=== PATIENT | female | born 1990 | race Caucasian/White ===

== ENCOUNTER 2022-09-30 13:52 | Outpatient (CLI) | payer OTHER, SELFPAY ==
--- NOTE | 2022-09-30 14:00 | CRLHL7_ITS ---
For Patients: As a result of the Cures Act, medical imaging exams and procedure reports are released immediately into your electronic medical record. You may view this report before your referring provider. If you have questions, please contact your health care provider. INDICATION: Dating and viability. LMP 07/22/2022. COMPARISON: None. TECHNIQUE: Real-time blackwell-scale imaging of the pelvis was performed. FINDINGS: Sonographic imaging demonstrates a single living intrauterine gestation. The embryo has a regular cardiac rate measuring 171 beats per minute. The embryo`s crown-rump length measurement of 3.1 cm corresponds to a gestational age of 10 weeks 0 days with a sonographic due date of 04/28/2023. There is a normal-appearing yolk sac. There is a developing placenta. There is a 2.8 x 1.2 x 4.3 cm subchorionic hemorrhage in the upper uterus. The right ovary measures 3.5 x 1.5 x 2.3 cm and the left ovary measures 2.2 x 1.3 x 1.9 cm. Corpus luteum in the right ovary. No free fluid in the cul-de-sac. IMPRESSION: 1. Single living intrauterine gestation with crown rump length 3.1 cm which corresponds to a gestational age of 10 weeks 0 days with a sonographic due date of 04/28/2023. 2. The clinical gestational age by LMP is 10 weeks 0 days. 3. Moderate subchorionic hemorrhage. Dictated by Karis Beckman MD @ 09/30/2022 6:52:18 PM (Electronically Signed)
== END 2022-09-30 13:53 | disposition home or self-care (01) ==
LOC: US 13:55
PROVIDERS: Visit Provider Physician Assistant
DX: Z34.91 Encounter for supervision of normal pregnancy, unspecified, first trimester (principal); O20.9 Hemorrhage in early pregnancy, unspecified; Z3A.10 10 weeks gestation of pregnancy
CPT/HCPCS: 76801; 82565; 82570; 84156; 84450; 84460; 84520; 84550; 86592; 86703; 86762; 86787; 86803; 86850; 86900; 86901; 87086; 87340; 87491; 87591

== ENCOUNTER 2022-10-06 10:58 | Outpatient (CLI) | payer OTHER, SELFPAY | END 2022-10-06 10:59 | disposition home or self-care (01) | LOC: NFLDREF 10-07 19:53 | PROVIDERS: Visit Provider Physician Assistant | DX: Z34.90 Encounter for supervision of normal pregnancy, unspecified, unspecified trimester (principal); Z86.32 Personal history of gestational diabetes | CPT/HCPCS: 82570; 84156 ==

== ENCOUNTER 2022-11-07 09:03 | Outpatient (CLI) | payer OTHER, SELFPAY | END 2022-11-07 09:04 | disposition home or self-care (01) | PROVIDERS: Visit Provider Physician Assistant | DX: Z34.92 Encounter for supervision of normal pregnancy, unspecified, second trimester (principal); Z3A.15 15 weeks gestation of pregnancy | CPT/HCPCS: 84450; 84460 ==

== ENCOUNTER 2022-12-15 09:05 | Outpatient (CLI) | payer OTHER, SELFPAY ==
--- NOTE | 2022-12-15 | CRLHL7_ITS ---
Patient: RADHA SOUSA Facility:?[facility] Patient ID:?[id number] Site Patient ID:?[id number]. Site :?[id number] Study:?US-OB Pelvis anatomy-12/15/2022 10:49:15 AM Ordering Physician:Khang June Final Report: ADDENDUM: BPD: 4.4 cm, 19 weeks 1 day, 3rd percentile. HC: 17.2 cm, 19 weeks 5 days, 6th percentile. AC: 15.1 cm, 20 weeks 2 days, 27th percentile. FL: 3.2 cm, 20 weeks 0 days, 15th percentile. Estimated weight 13th percentile. Sonographic gestational age 19 weeks 5 days and sonographic due date 05/06/2023. Sonographic age eight days behind the clinical age. Revised measurements due to adjustment in the clinical dates. Javed Simmons M.D. Diagnostic Radiologist [employer] [email or web address] [email or web address] D& Transcribed: 1:37 p.m. INDICATION: Evaluate anatomy. COMPARISON: 09/30/2022 TECHNIQUE: Real time blackwell scale imaging of the fetus was performed as well as color Doppler analysis of the umbilical vessels. FINDINGS: Sonographic imaging demonstrates a single living intrauterine gestation. Fetus demonstrates a regular cardiac rate of 148 beats per minute. Fetus has a vertex position. The placenta lies posteriorly. The edge of the placenta is located 2.0 cm from the internal cervical os. Circumvallate placenta noted. Amniotic fluid volume appears normal. Single deepest vertical pocket: 4.8 cm. The cervix is closed and measures 3.7 cm in length. The composite ultrasound gestational age is calculated at 19 weeks 5 days with an estimated sonographic due date of 05/06/2023. The estimated weight is 332 grams which lies at the 4th %. The following biometric measurements were obtained: Biparietal diameter: 4.4 cm/19 weeks 1 day less than 3rd% Head circumference: 17.2 cm/19 weeks 5 days less than 3rd% Abdominal circumference: 15.1 cm/20 weeks 2 days 13th% Femur length: 3.2 cm/20 weeks 0 days 6th% The HC/AC ratio measures: 1.14 range (1.08-1.26) On anatomic survey, there is a normal appearance of the cerebral ventricles, cavum septi pellucidi, cisterna magna and cerebellum. The nose, lips, and facial profile appear normal. The cervical, thoracic and lumbar spine are well visualized and appear normal. There is a normal four-chamber heart view and the left and right ventricular outflow tracts appear normal. The diaphragm and stomach appear normal. The kidneys and bladder also appear normal. There is a normal three-vessel cord and cord insertion site. The four extremities appear normal. IMPRESSION: Sonographic gestational age 19 weeks 5 days and sonographic due date 05/06/2023. Sonographic age 12 days behind the clinical age. Estimated weight 4th percentile. Abdominal circumference 13th percentile. BPD and HC less than 3rd percentile. Umbilical artery S/D ratio 2.6. Dictated by Javed Simmons MD @ 12/15/2022 11:06:20 AM Signed by: Javed Simmons @ 12/15/2022 11:06:20 AM (Electronic Signature) Signed by:?Javed Simmons MD @12/15/2022 3:48:18 PM (Electronic Signature)
== END 2022-12-15 09:06 | disposition home or self-care (01) ==
PROVIDERS: Visit Provider Physician Assistant
DX: O36.5920 Maternal care for other known or suspected poor fetal growth, second trimester, not applicable or unspecified (principal); Z3A.19 19 weeks gestation of pregnancy
CPT/HCPCS: 76805; 76820

== ENCOUNTER 2023-02-06 07:52 | Outpatient (CLI) | payer OTHER, SELFPAY | END 2023-02-06 07:53 | disposition home or self-care (01) | PROVIDERS: Visit Provider Obstetrics & Gynecology | DX: O26.899 Other specified pregnancy related conditions, unspecified trimester (principal); Z67.91 Unspecified blood type, Rh negative | CPT/HCPCS: 86592; 86850; J2791 ==

== ENCOUNTER 2023-02-06 08:13 | Outpatient (CLI) | payer OTHER, SELFPAY ==
--- NOTE | 2023-02-06 08:15 | CRLHL7_ITS ---
For Patients: As a result of the Century Cures Act, medical imaging exams and procedure reports are released immediately into your electronic medical record. You may view this report before your referring provider. If you have questions, please contact your health care provider. INDICATION: female. Follow up growth. Small for dates. Evaluate well-being. TECHNIQUE: Transabdominal obstetrical ultrasound. Grayscale and color spectral Doppler waveform analysis of the umbilical artery was performed. FINDINGS: Single living intrauterine in vertex presentation. Posterior placenta. heart rate 138 beats per minute. Normal amniotic fluid. Single deepest pocket measurement 5.1 cm. Biophysical profile score 8/8 with 2 points given each for breathing, movement, tone, and amniotic fluid. Biparietal diameter 6.6 cm, 26 weeks 5 days, 4th percentile. Head circumference twin 25.2 cm, 27 weeks 2 days, 3rd percentile. Abdominal circumference 22.8 cm, 27 weeks 1 day, 11th percentile. Femur length 5.1 cm, 27 weeks 2 days, 9th percentile. Composite calculated ultrasound age 27 weeks 1 day with a sonographic due date of May 07, 2023. Estimated weight 1038 g which lies at the 7th percentile. Head to abdominal circumference ratio is normal at 1.1 (1.05-1.22). Umbilical artery systolic to diastolic ratio 3.3. Adequate diastolic flow. IMPRESSION: Single living intrauterine in vertex presentation with a composite calculated ultrasound age of 27 weeks 1 day with a sonographic due date of May 09, 2023. Estimated weight is at the 7th percentile. Biophysical profile score 8/8. Dictated by Hema Green MD @ 02/06/2023 9:46:41 AM (Electronically Signed)
== END 2023-02-06 08:14 | disposition home or self-care (01) ==
LOC: US 08:14
PROVIDERS: Visit Provider Physician Assistant
DX: O36.5920 Maternal care for other known or suspected poor fetal growth, second trimester, not applicable or unspecified (principal); Z3A.27 27 weeks gestation of pregnancy
CPT/HCPCS: 76816; 76819; 76820; 86850; J2791

== ENCOUNTER 2023-02-14 07:10 | Outpatient (CLI) | payer OTHER, SELFPAY ==
--- NOTE | 2023-02-14 07:15 | CRLHL7_ITS ---
For Patients: As a result of the Century Cures Act, medical imaging exams and procedure reports are released immediately into your electronic medical record. You may view this report before your referring provider. If you have questions, please contact your health care provider. INDICATION: Small for dates COMPARISON: 02/06/2023 TECHNIQUE: Real time blackwell scale imaging of the fetus was performed as well as color Doppler and spectral Doppler analysis of the umbilical artery. Without non-stress testing. FINDINGS: Sonographic imaging demonstrates a single living intrauterine gestation. Fetus demonstrates a regular cardiac rate of 149 beats per minute. Fetus has a vertex position. The umbilical artery demonstrates adequate diastolic blood flow. The S/D ratio measures 2.5. The amniotic fluid volume appears normal and there is a single deepest pocket measurement of 5.3 cm. The fetus was active and demonstrated normal breathing movements. There was normal flexion and extension of the trunk and extremities. IMPRESSION: Normal biophysical profile score of 8 out of 8. Dictated by Javed Simmons MD @ 02/16/2023 11:39:07 AM (Electronically Signed)
== END 2023-02-14 07:11 | disposition home or self-care (01) ==
LOC: US 07:11
PROVIDERS: Visit Provider Obstetrics & Gynecology
DX: O36.5990 Maternal care for other known or suspected poor fetal growth, unspecified trimester, not applicable or unspecified (principal)
CPT/HCPCS: 76819; 76820

== ENCOUNTER 2023-02-17 09:29 | Outpatient (CLI) | payer OTHER, SELFPAY ==
--- NOTE | 2023-02-17 09:45 | CRLHL7_ITS ---
For Patients: As a result of the Century Cures Act, medical imaging exams and procedure reports are released immediately into your electronic medical record. You may view this report before your referring provider. If you have questions, please contact your health care provider. INDICATION: NON-REACTIVE NST COMPARISON: 02/14/2023 TECHNIQUE: Real time blackwell scale imaging of the fetus was performed. Without non-stress testing. FINDINGS: Sonographic imaging demonstrates a single living intrauterine gestation. Fetus demonstrates a regular cardiac rate of 157 beats per minute. Fetus has a vertex position. The amniotic fluid volume appears normal and there is a single deepest pocket measurement of 6.9 cm. The fetus was active and demonstrated normal breathing movements. There was normal flexion and extension of the trunk and extremities. IMPRESSION: Normal biophysical profile score of 8 out of 8. Dictated by Javed Simmons MD @ 02/17/2023 11:10:58 AM (Electronically Signed)
== END 2023-02-17 09:30 | disposition home or self-care (01) ==
LOC: US 09:29
PROVIDERS: Visit Provider Obstetrics & Gynecology
DX: O36.5990 Maternal care for other known or suspected poor fetal growth, unspecified trimester, not applicable or unspecified (principal)
CPT/HCPCS: 76819

== ENCOUNTER 2023-02-21 08:10 | Outpatient (CLI) | payer OTHER, SELFPAY ==
--- NOTE | 2023-02-21 08:15 | CRLHL7_ITS ---
For Patients: As a result of the Century Cures Act, medical imaging exams and procedure reports are released immediately into your electronic medical record. You may view this report before your referring provider. If you have questions, please contact your health care provider. INDICATION: IUGR COMPARISON: 02/17/2023 TECHNIQUE: Real time blackwell scale imaging of the fetus was performed as well as color Doppler and spectral Doppler analysis of the umbilical artery. Without non-stress testing. FINDINGS: Sonographic imaging demonstrates a single living intrauterine gestation. Fetus demonstrates a regular cardiac rate of 152 beats per minute. Fetus has a vertex position. The umbilical artery demonstrates adequate diastolic blood flow. The S/D ratio measures 3.2. The amniotic fluid volume appears normal and there is a single deepest pocket measurement of 4.9 cm. The fetus was active and demonstrated normal breathing movements. There was normal flexion and extension of the trunk and extremities. IMPRESSION: Normal biophysical profile score of 8 out of 8. Dictated by Javed Simmons MD @ 02/21/2023 10:49:03 AM (Electronically Signed)
== END 2023-02-21 08:11 | disposition home or self-care (01) ==
LOC: US 08:10
PROVIDERS: Visit Provider Obstetrics & Gynecology
DX: O36.5990 Maternal care for other known or suspected poor fetal growth, unspecified trimester, not applicable or unspecified (principal)
CPT/HCPCS: 76819; 76820

== ENCOUNTER 2023-02-28 08:41 | Outpatient (CLI) | payer OTHER, SELFPAY ==
--- NOTE | 2023-02-28 08:45 | CRLHL7_ITS ---
For Patients: As a result of the Century Cures Act, medical imaging exams and procedure reports are released immediately into your electronic medical record. You may view this report before your referring provider. If you have questions, please contact your health care provider. INDICATION: 32 year-old female. IUGR. Evaluate well-being. COMPARISON: February 21, 2023. TECHNIQUE: Real time blackwell scale imaging of the fetus was performed as well as color Doppler and spectral Doppler analysis of the umbilical artery. Without non-stress testing. FINDINGS: Sonographic imaging demonstrates a single living intrauterine gestation. Fetus demonstrates a regular cardiac rate of 133 beats per minute. Fetus has a breech orientation with spine to the maternal left side. The umbilical artery demonstrates adequate diastolic blood flow. The S/D ratio measures 2.8. The amniotic fluid volume appears normal and there is a four-quadrant fluid volume index measurement of 3.7 cm. The fetus was active and demonstrated normal breathing movements. There was normal flexion and extension of the trunk and extremities. IMPRESSION: Normal biophysical profile score of 8 out of 8. Dictated by Hema Green MD @ 02/28/2023 9:37:07 AM (Electronically Signed)
== END 2023-02-28 08:42 | disposition home or self-care (01) ==
LOC: US 08:42
PROVIDERS: Visit Provider Obstetrics & Gynecology
DX: O36.5990 Maternal care for other known or suspected poor fetal growth, unspecified trimester, not applicable or unspecified (principal)
CPT/HCPCS: 76819; 76820

== ENCOUNTER 2023-03-07 08:14 | Outpatient (CLI) | payer OTHER, SELFPAY ==
--- NOTE | 2023-03-07 08:15 | CRLHL7_ITS ---
For Patients: As a result of the Cures Act, medical imaging exams and procedure reports are released immediately into your electronic medical record. You may view this report before your referring provider. If you have questions, please contact your health care provider. INDICATION: IUGR, GDM TECHNIQUE: Real time blackwell scale imaging of the fetus was performed as well as color Doppler and spectral Doppler analysis of the umbilical artery. COMPARISON: 02/06/2023, 02/28/23 FINDINGS: Sonographic imaging demonstrates a single living intrauterine gestation. Fetus demonstrates a regular cardiac rate of 144 beats per minute. Fetus has a vertex position. The placenta lies posteriorly. Amniotic fluid volume appears normal and there is a single deepest pocket of 7.1 cm. The estimated weight is 1672gm which lies at the 6th %. On the prior OB ultrasound dated 02/06/2023 the estimated weight was at the 7th percentile. BPD 50 percentile. HC 7th percentile. AC 8th percentile. FL 7th percentile. There is adequate diastolic blood flow within the umbilical artery. The S/D ratio measures 2.7. The fetus was active and demonstrated normal breathing movements. There was normal flexion and extension of the trunk and extremities. IMPRESSION: Normal biophysical profile score 8/8. Sonographic gestational age 31 weeks 1 day and sonographic due date 05/08/2023. Sonographic age is 10 days behind the clinical age. Estimated weight 6th percentile. Abdominal circumference 8th percentile. Dictated by Javed Simmons MD @ 03/07/2023 10:33:38 AM (Electronically Signed)
== END 2023-03-07 08:15 | disposition home or self-care (01) ==
LOC: US 08:15
PROVIDERS: Visit Provider Obstetrics & Gynecology
DX: O36.5990 Maternal care for other known or suspected poor fetal growth, unspecified trimester, not applicable or unspecified (principal); O24.419 Gestational diabetes mellitus in pregnancy, unspecified control; Z3A.31 31 weeks gestation of pregnancy
CPT/HCPCS: 76816; 76819; 76820

== ENCOUNTER 2023-03-14 08:16 | Outpatient (CLI) | payer OTHER, SELFPAY ==
--- NOTE | 2023-03-14 08:15 | CRLHL7_ITS ---
For Patients: As a result of the Century Cures Act, medical imaging exams and procedure reports are released immediately into your electronic medical record. You may view this report before your referring provider. If you have questions, please contact your health care provider. INDICATION: IUGR, GDM COMPARISON: 03.07.23 TECHNIQUE: Real time blackwell scale imaging of the fetus was performed as well as color Doppler and spectral Doppler analysis of the umbilical artery. Without non-stress testing. FINDINGS: Sonographic imaging demonstrates a single living intrauterine gestation. Fetus demonstrates a regular cardiac rate of 137 beats per minute. Fetus has a vertex position. The umbilical artery demonstrates adequate diastolic blood flow. The S/D ratio measures 3.2. The amniotic fluid volume appears normal and there is a single deepest pocket measurement of 5.9 cm. The fetus was active and demonstrated normal breathing movements. There was normal flexion and extension of the trunk and extremities. IMPRESSION: Normal biophysical profile score of 8 out of 8. Dictated by Javed Simmons MD @ 03/14/2023 10:13:59 AM (Electronically Signed)
== END 2023-03-14 08:17 | disposition home or self-care (01) ==
LOC: US 08:17
PROVIDERS: Visit Provider Obstetrics & Gynecology
DX: O24.414 Gestational diabetes mellitus in pregnancy, insulin controlled (principal); O36.5990 Maternal care for other known or suspected poor fetal growth, unspecified trimester, not applicable or unspecified
CPT/HCPCS: 76819; 76820

== ENCOUNTER 2023-03-21 08:21 | Outpatient (CLI) | payer OTHER, SELFPAY ==
--- NOTE | 2023-03-21 08:15 | CRLHL7_ITS ---
For Patients: As a result of the Cures Act, medical imaging exams and procedure reports are released immediately into your electronic medical record. You may view this report before your referring provider. If you have questions, please contact your health care provider. OB ULTRASOUND PEG by LMP: 04/28/2023. GA: 34 w, 4 d. Single. Comparison: 03/24/2023, 03/07/2023. INDICATION: IUGR, GDM. CERVIX: Not visualized. POSITIONING: Vertex. AMNIOTIC FLUID: 4.6 cm. BIOPHYSICAL PROFILE: Total score: 8/8. Gross body movements: 2. tone: 2. Respiratory activity: 2. Amniotic fluid: 2. (SDP N: Increase 2 x 1 cm) PLACENTA: Technique: Transabdominal. PLACENTA POSITION: Posterior. DOPPLER: heart rate: 173 bpm. Umbilical artery: 2.3 S/D. IMPRESSION: Biophysical profile score 8 of 8. Laurie Bernal M.D. Diagnostic/Breast Radiologist [employer] [facility] [email or web address] knowles/Dictated by: Laurie Bernal MD @ 03/23/2023 7:27:00 AM (Electronically Signed)
== END 2023-03-21 08:22 | disposition home or self-care (01) ==
PROVIDERS: Visit Provider Obstetrics & Gynecology
DX: O24.414 Gestational diabetes mellitus in pregnancy, insulin controlled (principal); O36.5990 Maternal care for other known or suspected poor fetal growth, unspecified trimester, not applicable or unspecified
CPT/HCPCS: 76819; 76820

== ENCOUNTER 2023-03-28 08:14 | Outpatient (CLI) | payer OTHER, SELFPAY ==
--- NOTE | 2023-03-28 08:15 | CRLHL7_ITS ---
For Patients: As a result of the Century Cures Act, medical imaging exams and procedure reports are released immediately into your electronic medical record. You may view this report before your referring provider. If you have questions, please contact your health care provider. INDICATION: IUGR TECHNIQUE: Limited transabdominal two-dimensional blackwell-scale ultrasound examination. COMPARISON: None FINDINGS: There is a living fetus in vertex lie with gestational age of 35 weeks 4 days by LMP and EDC of 04/28/2023. The biophysical profile score is 8/8. The heart rate is measured at 141 beats per minute and the rhythm appears regular. The amniotic fluid volume is within normal limits with single deepest pocket of 5.3 cm. The placenta is posterior and superior to the cervical os. There is no evidence of previa. Cord arterial S/D = 2.5. IMPRESSION: 1. Living fetus with gestational age of in vertex lie with gestational age of 35 weeks 4 days by LMP and EDC of 04/28/2023. 2. Biophysical profile score is 8/8. 3. Cord arterial S/D = 2.5. Dictated by Robbie Gifford MD @ 03/28/2023 10:32:21 AM (Electronically Signed)
== END 2023-03-28 08:15 | disposition home or self-care (01) ==
LOC: US 08:14
PROVIDERS: Visit Provider Obstetrics & Gynecology
DX: O36.5990 Maternal care for other known or suspected poor fetal growth, unspecified trimester, not applicable or unspecified (principal); Z3A.35 35 weeks gestation of pregnancy
CPT/HCPCS: 76819; 76820

== ENCOUNTER 2023-04-04 08:12 | Outpatient (CLI) | payer OTHER, SELFPAY ==
--- NOTE | 2023-04-04 08:15 | CRLHL7_ITS ---
For Patients: As a result of the Cures Act, medical imaging exams and procedure reports are released immediately into your electronic medical record. You may view this report before your referring provider. If you have questions, please contact your health care provider. INDICATION: IUGR, GDM TECHNIQUE: Real time blackwell scale imaging of the fetus was performed as well as color Doppler and spectral Doppler analysis of the umbilical artery. COMPARISON: 03/28/2023 FINDINGS: Sonographic imaging demonstrates a single living intrauterine gestation. Fetus demonstrates a regular cardiac rate of 145 beats per minute. Fetus has a vertex position. The placenta lies posteriorly. Amniotic fluid volume appears normal and there is a single deepest pocket of 5.3 cm. The estimated weight is 2595gm which lies at the 18th %. On the prior OB ultrasound dated 03/07/2023 the estimated weight was at the 6th percentile. There is antegrade diastolic blood flow within the umbilical artery. The S/D ratio measures 4.1. BPD 5th percentile. HC 3rd percentile. AC 36th percentile. FL 6th percentile. The fetus was active and demonstrated normal breathing movements. There was normal flexion and extension of the trunk and extremities. IMPRESSION: Normal biophysical profile score 8/8. Mildly elevated S/D ratio of 4.1, should be less than 3.5. Sonographic gestational age 34 weeks 6 days and sonographic due date 05/10/2023. Sonographic age is 12 days behind the clinical age. Estimated weight 18th percentile. Abdominal circumference 36th percentile. Dictated by Javed Simmons MD @ 04/04/2023 11:32:38 AM (Electronically Signed)
== END 2023-04-04 08:13 | disposition home or self-care (01) ==
LOC: US 08:12
PROVIDERS: Visit Provider Obstetrics & Gynecology
DX: O24.414 Gestational diabetes mellitus in pregnancy, insulin controlled (principal); Z3A.36 36 weeks gestation of pregnancy
CPT/HCPCS: 76816; 76819; 76820; 87081; 87653; 93976

== ENCOUNTER 2023-04-06 15:59 | Inpatient (IN) | payer OTHER, SELFPAY ==
[2023-04-06 16:13] VITALS: PULSE 102; O2SAT 99
[2023-04-06 16:14] VITALS: BP 135/85; PULSE 95; RESP 16; TEMP 36.8
[2023-04-06 16:16] VITALS: BMI 34.8
--- NOTE | 2023-04-06 16:49 | P.LDBA_ITS ---
Subjective History of Present Illness Date Seen: 04/06/23 Narrative: Patient is being admitted to Labor and Delivery for cervical ripening / IOL. She is a 32 year old -0-2-3 woman at 36 6/7 weeks' gestation. She has had findings consistent with growth restriction on 2 ultrasounds. While her most recent ultrasound showed EFW at 18th percentile, there was also an elevated S/D ratio noted. Given this, the decision was made to manage her consistent with placental insufficiency and possible growth restriction. Her full history and physical was dictated by Dr. Shetty on 04/04/23. Please see this for details. Specific Issues/Plans Diaphragm fitting at 6 weeks 1. growth restriction (dx on 02/06/23 = 28 3/7 wks). EFW 1038 g, which is 7%ile. AC 11%tile. SD ratio 3.3. Normal. SDP 5.1 cm Perinatology referral placed: US 02/13/23. EFW 16%, AC 31%, posterior placenta with no previa, no anomalies Despite discrepancy, [facility] recommends: -Continuation of twice weekly testing with BPP -Serial US for growth monthly: - 03/07/23: EFW: 6%, AC: 8%, SDP: 7.1cm, Vertex, UA dopplers: 2.7 normal - 04/04/23 EFW 18%ile, however elevated S/D ratio at >95%ile 2. GDMA2: -Nutrition referral complete -12/15/22: Blood sugars, hector fastings elevated. Referral to [facility] for insulin -12/16/22: Diabetes education and initiation of insulin -12/16/22: Initiated 12 units NPH at at bedtime. -As of 03/28/23, controlled on NPH 22 u HS - Pt increased to NPH 24u HS on 04/01, now all WNL 3. Rh-negative status -RhoGAM: 02/06/2023 4. Probable chronic HTN; stage I HTN noted on several values near beginning of , with proteinuria noted at baseline. -History of gestational hypertension, developed in labor with last . Was discharged on Procardia -Baseline preeclampsia labs: pr/cr ratio: 0.30, AST 37 H, ALT 42 H -24 hr urine for protein: 305 -Repeat AST/ALT: 11/07=AST 43 h, ALT 28 NL 5. Obesity, BMI 36.4 -ASA 81mg -Hemoglobin A1c: 5.7% 6.Anatomy Scan: EFW 13%, Placenta tip 2.0 cm from os. Repeat US at 28 weeks: no previa Tdap: Given, 02/14/23 Rhogam: 02/06 RSV: Declines Last Pap Smear 03/2019: NILM, no HPV. No history of abnormal pap smears per chart review, repeat Pap . OB - Problem Based A/P Additional Plan (1) growth restriction: Status: Acute Plan: Intermittently noted on growth US in 3rd trimester. Low-normal EFW on most recent US, but with new finding of elevated S:D. Unfavorable cervix. Will begin cervical ripening with Cook catheter. Placed above endocervix in aseptic fashion, with intrauterine and intravaginal balloons inflated to 60 cc fluid. Will adjust as needed to maternal tolerance. Begin low-dose pitocin at 00:30. Continuous monitoring on pitocin. (2) Gestational diabetes requiring insulin: Status: Acute Plan: Will give usual dose of NPH tonight, then no more tomorrow. will begin intrapartum protocol for GDM in active labor. (3) GBS (group B Streptococcus carrier), +RV culture, currently : Status: Acute Plan: Begin ampicillin now. (4) Arrhythmia: Problem details: Reports hx of PVCs. Given the regularly irregular rhythym noted on exam today, EKG ordered. Status: Acute Delivery/Labor/Induction Plan Plan: induction Induction method: Intracervical balloon catheter OB Result Labs GBS Status: positive OB Exam Physical Exam Vital signs: Pulse BP Pulse Ox 95 135/85 99 04/06/23 16:14 04/06/23 16:14 04/06/23 16:13 Narrative: Physical exam: General: No acute distress Psych: Alert and oriented x3, full affect HEENT: Normocephalic, atraumatic Heart: Regularly irregular rhythm, with extra beat Q 3 beats; no murmur rub or gallop Lungs: Clear to auscultation bilaterally Abdomen: Soft, nontender, gravid, cephalic lie Lower extremities: No edema or erythema Pelvic exam: Cervix 1 / 70% / -3 / anterior / moderate tracing: Baseline 130, accelerations present, no decelerations, moderate variability. Intermittent contractions noted, approximately every 5 minutes.
[2023-04-06 17:22] LABS: Basophils Percent Auto 0.2 % (0.0-3.0); Eosinophils Percent Auto 1.3 % (0.0-7.0); Hematocrit 42.1 % (33.0-51.0); Hemoglobin* 14.1 gm/dL (12.0-16.0); Immature Granulocytes Pct Auto 0.5 %; Lymphocytes Percent Auto 20.5 % (20-44); Mean Corpuscular HGB Conc 34 gm/dL (32-36); Mean Corpuscular Hemoglobin 29 pg (26-34); Mean Corpuscular Volume 88 fL (80-100); Neutrophils Percent Auto 72.5 % (42.0-72.0); Platelet Count* 239 K/uL (140-440); RDW Coefficient of Variation % 13.1 % (11.5-15.5); Red Blood Count 4.81 m/uL (4.00-5.20); White Blood Count* 11.29 K/uL (4.50-11.00)
[2023-04-06 17:42] LABS: Slide Review Reflex No
[2023-04-06] MEDS: AMPICILLIN 2 GM in 0.9 % SODIUM CHLORIDE Mini-bag 100 ML IVPB (17:55)
[2023-04-06 19:16] LABS: Alanine Aminotransferase* 13 U/L (4-35); Aspartate Amino Transferase* 22 U/L (12-35); Blood Urea Nitrogen* 12 mg/dL (5-24); Creatinine* 0.7 mg/dL (0.5-1.5); Est. Creatinine Clearance* 100.55; Estimated Glomerular Filt Rate 119 ml/min
[2023-04-06 19:21] VITALS: BP 128/83; PULSE 100; RESP 16; TEMP 36.9
[2023-04-06] MEDS: INSULIN INF 100 UNIT/100 ML 100 UNIT/100 ML BAG IVPB (19:43)
[2023-04-06] MEDS: LACTATED RINGERS 1000 ML 1,000 ML 125 ML IV (19:43)
[2023-04-06] MEDS: INSULIN NPH 100 UNIT/ML 24 UNIT SUBCUT (21:39)
[2023-04-06] MEDS: AMPICILLIN 1 GM in 0.9 % SODIUM CHLORIDE Mini-bag 100 ML IVPB (22:34)
[2023-04-06 23:07] VITALS: BP 136/72; PULSE 93
[2023-04-07] VITALS (82 sets, daily range): BP systolic 85–139; BP diastolic 43–91; PULSE 48–125; RESP 15–16; TEMP 36.6–37.2; O2SAT 96–99
[2023-04-07] MEDS: hydrOXYzine pamoate 25 MG CAPSULE 100 MG PO (00:02)
[2023-04-07] MEDS: OXYTOCIN 30 unit/500 ML in NS 30 UNIT/500 ML BAG IVPB (00:04)
[2023-04-07] MEDS: AMPICILLIN 1 GM in 0.9 % SODIUM CHLORIDE Mini-bag 100 ML IVPB ×3 (02:34→11:32)
[2023-04-07] MEDS: LACTATED RINGERS 1000 ML 1,000 ML 600 ML IV (05:43)
[2023-04-07] MEDS: ROPIVACAINE 0.2% 100 ml 100 ML 12 MG EPIDURAL (05:45)
[2023-04-07] MEDS: PHENYLEPHRINE 100 MCG/ML SYRINGE IVP ×6 (05:53→08:46)
--- NOTE | 2023-04-07 05:54 | PM.ANBPRC ---
[facility] Medical History (Updated 04/06/23 @ 18:00 by Maribeth Rubi MD) Intrauterine growth restriction (IUGR) affecting care of mother ?O36.5990 - Maternal care for other known or suspected poor growth, unspecified trimester, not applicable or unspecified (ICD-10) History of gestational hypertension ?Z87.59 - Personal history of other complications of , childbirth and the puerperium (ICD-10) History of gestational diabetes ?Z86.32 - Personal history of gestational diabetes (ICD-10) Surgical History History of tonsillectomy and adenoidectomy ?Z90.89 - Acquired absence of other organs (ICD-10) Family History Maternal Grandmother Pre-diabetes Father Pre-diabetes Aunt Colon cancer Social History Narrative: History of blood transfusion: No. 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 Marital status: . Yarsani/cultural needs: No. Chemical or radiation exposure: No. Pre- tobacco use: no. Pre- alcohol use: no. Current tobacco use: no. Current alcohol use: no. Recreational drug use: no. Dietary restrictions: no. Blood transfusion acceptable in an emergency: yes . FAMILY AND GENETIC HISTORY: Negative for heritable disease or defects. Please also see problem list PSYCHOSOCIAL HISTORY: History of depression or currently depresses: no. Current physical, emotional, or sexual mistreatment: no. Problems that will make it hard to make it to appointments: no. What is your current living situation?: I presently have a place to live Problems where you live: no known problems In the past 12 months, utilities in danger of being shut off: no In past 12 months, lack of transportation kept you from medical appts, meetings, work, or getting things needed for daily living: no In the past 12 mos, have been you worried that your food would run out before you had money to buy more?: never true In the past 12 mos, the food you bought just didn't last and you didn't have money to buy more?: never true Smoking Status: Former smoker How often does anyone, including family, friends and others, physically hurt you: never How often does anyone, including family, friends and others, insult or talk down to you: never How often does anyone, including family, friends and others, threaten you with harm: never How often does anyone, including family, friends and others, scream or curse at you: never Little interest or pleasure in doing things: not at all Feeling down, depressed, or hopeless: not at all Meds Home Medications and Allergies Home Medications Medication Instructions Recorded Confirmed Type calcium carbonate 600 mg calcium 600 mg PO QDAY 09/30/22 04/06/23 History (1,500 mg) tablet docosahexaenoic acid 200 mg mg PO 09/30/22 04/04/23 History capsule ( DHA) magnesium 250 mg tablet 250 mg PO QDAY 09/30/22 04/06/23 History omega 3-fic-mnz-fish oil 100 cap PO 09/30/22 04/04/23 History mg-160 mg-1,000 mg capsule (Fish Oil) aspirin 81 mg tablet,delayed 81 mg PO QDAY 12/15/22 04/06/23 History release (Adult Aspirin Regimen) vitamin B complex (B 1 tab PO QDAY 12/15/22 04/06/23 History Complex-Vitamin B12 tablet) zinc citrate 11 mg chewable tablet mg PO 03/21/23 04/04/23 History insulin NPH isoph U-100 human 100 24 unit subcut .hs 04/04/23 04/06/23 History unit/mL subcutaneous suspension (Humulin N NPH U-100 Insulin (isophane susp)) Allergies Allergy/AdvReac Type Severity Reaction Status Date / Time No Known Drug Allergies Allergy Verified 04/04/23 08:12 Results Labs Labs: Laboratory Results - last 24 hr 04/06/23 17:10 WBC 11.29 H RBC 4.81 Hgb 14.1 Hct 42.1 MCV 88 MCH 29 MCHC 34 RDW Coeff of Terrance 13.1 Plt Count 239 Neut % (Auto) 72.5 H Lymph % (Auto) 20.5 [place] % (Auto) 5.0 Eos % (Auto) 1.3 Baso % (Auto) 0.2 Neut # (Auto) 8.20 H Lymph # (Auto) 2.30 [place] # (Auto) 0.60 Eos # (Auto) 0.10 Baso # (Auto) 0.00 Abs Immat Gran (auto) 0.10 Imm/Tot Granulo (auto) 0.5 BUN 12 Creatinine 0.7 Estimated Creat Clear 100.55 Estimated GFR 119 AST 22 ALT 13 TSH 1.110 Blood Type B Negative Antibody Screen POSITIVE Vital Signs Vital Signs: Last Vital Signs Temp 98.1 F 04/07/23 02:36 Pulse 86 04/07/23 05:53 Resp 15 04/07/23 02:36 BP 130/77 04/07/23 05:53 Pulse Ox 97 04/07/23 05:43 Weight: 92.306 kg Height: 162.56 cm Anesthesia Procedures Epidural Insertion Patient Location: OB Start Time: 05:15 Stop Time: 05:54 Start Date: 04/07/23 Stop Date: 04/07/23 Reason for Block: procedure for pain Patient Position: sitting Performed By: Celestino Agosto Preanesthetic Checklist: IV checked, risks and benefits discussed, monitors and equipment checked, pre-op evaluation, timeout performed and anesthesia consent Prep: chlorhexidine gluconate Monitoring: blood pressure monitoring, continuous pulse oximetry and heart rate Approach: midline Vertebral Space: lumbar (1-5) Epidural Technique: ALBERTO saline Needle Type: Tuohy needle Injection Technique: continuous catheter Needle gauge: 17 Needle Length (cm): 10 cm Needle Insertion Depth (cm): 7 Catheter Gauge: 19 Catheter Type: multi-orifice Catheter at skin depth (cm): 14 Test Dose Result: negative and lidocaine 1.5% with epinephrine 1 to 200,000
[2023-04-07] MEDS: ePHEDrine sulfate 5 MG/ML inj 10 MG IVP ×2 (06:52→09:05)
[2023-04-07] MEDS: LACTATED RINGERS 1000 ML 1,000 ML IV (09:11)
[2023-04-07] MEDS: 5 % DEXTROSE/0.9% SOD CHLORIDE 1,000 ML 125 ML IV (09:50)
--- NOTE | 2023-04-07 10:21 | PM.OBPNL ---
Subjective Time Seen by Provider: 09:30 Date Seen: 04/07/23 Objective Vital Signs: Last Vital Signs Temp 97.8 F 04/07/23 10:05 Pulse 98 04/07/23 10:11 Resp 16 04/07/23 10:05 BP 123/71 04/07/23 10:11 Pulse Ox 97 04/07/23 05:43 Pelvic Exam Dilation (cm): 5 Effacement (%): 50 Station: -3 Contractions Monitor mode: External Contraction pattern: Regular Contraction intensity: Moderate Pitocin Rate (mU/min): 8 Assessment Assessment: induction ongoing Station: -3 Amniotic Membrane Status: SROM (Blood tinged but overall clear) Status: Category ll Heart Rate Baseline: 150 Intermediate Variability: Moderate (6-25) Monitor Accelerations: Present Monitor Decelerations: Late (Intermittent lates due to low BP. Resuscitated) Plan Plan: - SROM without complications - Will continue titrating Pitocin
[2023-04-07] MEDS: LACTATED RINGERS 1000 ML 1,000 ML 125 ML IV (10:27)
[2023-04-07] MEDS: OXYTOCIN 10 UNIT/ML INJ IM (13:11)
[2023-04-07] MEDS: CARBOPROST TROMETHAMINE 250 MCG/ML INJ IM (13:20)
[2023-04-07] MEDS: miSOPROStoL 800 MCG/4 TABLET PR (13:21)
[2023-04-07] MEDS: TRANEXAMIC ACID 100 MG/ML INJ 1000 MG IV (13:28)
[2023-04-07] MEDS: LOPERAMIDE HCL 2 MG CAPSULE 4 MG PO (13:45)
[2023-04-07] MEDS: ACETAMINOPHEN 500 MG TABLET 1000 MG PO ×2 (13:50→20:06)
--- NOTE | 2023-04-07 13:52 | W.PM.VAGDEL1 ---
Procedure Procedure Done: Global Events: GDMA2, Chronic Hypertension and Labor Induction Intrapartal Events: Labor Induction and Excessive Bleeding Delivery monitor: external FHT Route of delivery: Laceration description: None Anesthesia type: Epidural Disposition: floor Narrative: Amy is a 2 year-old G 6 P 3023 admitted on 04/06/2023 at 36 and 6/7 weeks gestation for induction of labor due to elevated umbilical artery Dopplers during her surveillance for growth restriction. Cervical exam on admission was 1 cm/70 % effaced/-3 station with membranes intact in vertex presentation. AROM occurred at 0933 on April 07 with clear fluid. Pitocin: Yes Labor onset: April 07 at 0439 Complete: April 07 at 1303 Pushing: April 07 at 1309 heart tones during second stage were cat II with rare variables that self resolved. At 1309 a viable female infant delivered in vertex OA presentation over intact perineum via spontaneous vaginal delivery. Infant was placed on maternal abdomen. Cord was clamped and cut after a 30-60 second delay. Nose and mouth were bulb suctioned. weight: 2525 g. 7 at 1 minute and 7 at 5 minutes. Shoulder dystocia: No. Nuchal cord: No . Placenta delivered spontaneously and complete at 13 13 with a 3 vessel cord. Complications: Increased bleeding due to uterine atony from precipitous delivery precipitous precipitous precipitous requiring 40 units of Pitocin, Hemabate x 1, 800 mcg of misoprostol rectally, and 1 g of TXA. Mother and infant were stable after delivery. Laceration(s): None. Quantitative blood loss: 600 mL. Mother and infant were stable at the time of this note. Gender: Female presentation: vertex Placental Delivery Description: Spontaneous Cord Description: 3 Vessels
[2023-04-07] MEDS: IBUPROFEN 600 MG TABLET PO ×2 (14:47→22:25)
[2023-04-07] MEDS: SIMETHICONE 80 MG TAB.CHEW PO (15:43)
[2023-04-08 01:21] VITALS: BP 111/74; PULSE 80; RESP 16; TEMP 36.6; O2SAT 97
[2023-04-08] MEDS: ACETAMINOPHEN 500 MG TABLET 1000 MG PO ×4 (01:36→20:18)
[2023-04-08] MEDS: IBUPROFEN 600 MG TABLET PO ×3 (04:07→16:44)
[2023-04-08 04:09] VITALS: BP 116/79; PULSE 80; RESP 16; TEMP 36.5; O2SAT 97
[2023-04-08 07:30] VITALS: BP 115/82; PULSE 78; RESP 16; TEMP 36.3; O2SAT 97
[2023-04-08 07:34] LABS: Hemoglobin* 11.2 gm/dL (12.0-16.0)
[2023-04-08] MEDS: DOCUSATE SODIUM 100 MG CAPSULE PO (07:45)
--- NOTE | 2023-04-08 08:29 | PM.ANPOST ---
Post Anesthesia Note Post Anesthesia Note Patient seen: Inpatient Respiratory Status: adequate Cardiovascular Status: adequate Mental Status: baseline Pain: adequate Temp: baseline Anesthetic awareness: N/A Complications: other (hypotension and initial very dense block; answered all patient questions. ) Follow care: none
--- NOTE | 2023-04-08 09:46 | PM.OBPNVD1 ---
OB - PN:Subj Subjective Date Seen: 04/08/23 Interval history: Amy is a 32 yo G6 now P4-0-2-4 woman who is s/p at 37 0/7 weeks on 04/07/23 after IOL for borderline IUGR with elevated S/D ratio. She had an uncomplicated vaginal of a baby girl, 2525 g. She had no lacerations. OB Problem List: 1. growth restriction (dx on 02/06/23 = 28 3/7 wks). EFW 1038 g, which is 7%ile. AC 11%tile. SD ratio 3.3. Normal. SDP 5.1 cm Perinatology referral placed: US 02/13/23. EFW 16%, AC 31%, posterior placenta with no previa, no anomalies Despite discrepancy, [facility] recommends: -Continuation of twice weekly testing with BPP -Serial US for growth monthly: - 03/07/23: EFW: 6%, AC: 8%, SDP: 7.1cm, Vertex, UA dopplers: 2.7 normal - 04/04/23 EFW 18%ile, however elevated S/D ratio at >95%ile 2. GDMA2: -Nutrition referral complete -12/15/22: Blood sugars, hector fastings elevated. Referral to [facility] for insulin -12/16/22: Diabetes education and initiation of insulin -12/16/22: Initiated 12 units NPH at at bedtime. -As of 03/28/23, controlled on NPH 22 u HS - Pt increased to NPH 24u HS on 04/01, now all WNL 3. Rh-negative status -RhoGAM: 02/06/2023 4. Probable chronic HTN; stage I HTN noted on several values near beginning of , with proteinuria noted at baseline. -History of gestational hypertension, developed in labor with last . Was discharged on Procardia -Baseline preeclampsia labs: pr/cr ratio: 0.30, AST 37 H, ALT 42 H -24 hr urine for protein: 305 -Repeat AST/ALT: 11/07=AST 43 h, ALT 28 NL 5. Obesity, BMI 36.4 -ASA 81mg -Hemoglobin A1c: 5.7% 6.Anatomy Scan: EFW 13%, Placenta tip 2.0 cm from os. Repeat US at 28 weeks: no previa Narrative: Amy is feeling well today. She is without difficulty. Pain is well controlled. She is ambulating and urinating without difficulty. No heavy bleeding. OB - PN: Obj Exam Physical Exam: Vital signs: Temp Pulse Resp BP Pulse Ox O2 Del Method 97.4 F L 78 16 115/82 97 Room Air 04/08/23 07:30 04/08/23 07:30 04/08/23 07:30 04/08/23 07:30 04/08/23 07:30 04/08/23 07:30 Narrative: General: Pleasant, no acute distress Heart: Regular rate and rhythm, no murmur or gallop Lungs: Clear to auscultation bilaterally Abdomen: Soft, nontender, fundus well below umbilicus Lower extremities: 1+ edema bilaterally, no erythema OB - PN: Obj Data Labs Labs: Laboratory Results - last 24 hr 04/06/23 04/07/23 04/08/23 17:10 07:23 07:23 Hgb 11.2 L Antibody Identification Anti-D Screen Negative OB - PN: A/P Delivery Assessment and Plan (1) Normal spontaneous vaginal delivery: Status: Acute Assessment and Plan: appropriate course. Given early term , infant daughter may benefit from staying another night. Defer to peds for disposition. (2) History of gestational diabetes: Problem details: Treated with insulin all 3 previous pregnancies Status: Acute Assessment and Plan: Glucose reportedly 96 yesterday. No further monitoring required at this time. Will plan for 2 hr GTT at 6 weeks. Plan day: 1 Plan: routine care
[2023-04-08 14:00] VITALS: BP 131/83; PULSE 83; RESP 16; TEMP 36.6; O2SAT 97
[2023-04-08 16:45] VITALS: BP 110/71; PULSE 87; RESP 16; TEMP 36.4; O2SAT 97
[2023-04-08 17:01] VITALS: BP 110/71; PULSE 84; RESP 16; TEMP 36.4; O2SAT 97
--- NOTE | 2023-04-08 19:10 | P.DS_ITS ---
DS: Providers Provider Date Seen: 04/08/23 Date of admission: 04/06/23 15:59 Primary care physician: Not a Local Provider Admitting Clinician: Maribeth Rubi MD Attending Physician on discharge: Maribeth Rubi MD Date of Discharge: 04/08/23 DS: Diagnosis Discharge Diagnosis (1) History of gestational diabetes: Status: Acute Problem details: Treated with insulin all 3 previous pregnancies (2) Normal spontaneous vaginal delivery: Status: Acute (3) PVC (premature ventricular contraction): Status: Acute Exam Const: Vital Signs, click to edit/add: Vital Signs - 24 hr 04/07/23 22:03 04/08/23 01:21 04/08/23 04:09 Temperature 98.3 F 97.8 F 97.7 F Pulse Rate Pulse Rate [Pulse Oximeter] 88 80 80 Respiratory Rate 16 16 16 Blood Pressure Blood Pressure [Le ft Arm] 101/65 111/74 116/79 Pulse Oximetry 97 97 97 Oxygen Delivery Me thod Room Air Room Air Room Air 04/08/23 07:30 04/08/23 14:00 04/08/23 16:45 Temperature 97.4 F L 97.8 F 97.6 F Pulse Rate Pulse Rate [Pulse Oximeter] 78 83 87 Respiratory Rate 16 16 16 Blood Pressure Blood Pressure [Le ft Arm] 115/82 131/83 110/71 Pulse Oximetry 97 97 97 Oxygen Delivery Me thod Room Air Room Air Room Air 04/08/23 17:01 Temperature 97.6 F Pulse Rate 84 Pulse Rate [Pulse Oximeter] Respiratory Rate 16 Blood Pressure 110/71 Blood Pressure [Le ft Arm] Pulse Oximetry 97 Oxygen Delivery Me thod OB - DS: Summary Hospital Course Hospital Course: Amy is a 32 yo G6 now P4-0-2-4 woman who is s/p at 37 0/7 weeks on 04/07/23 after IOL for borderline IUGR with elevated S/D ratio. She had an uncomplicated vaginal of a baby girl, 2525 g. She had no lacerations. OB Problem List: 1. growth restriction (dx on 02/06/23 = 28 3/7 wks). EFW 1038 g, which is 7%ile. AC 11%tile. SD ratio 3.3. Normal. SDP 5.1 cm Perinatology referral placed: US 02/13/23. EFW 16%, AC 31%, posterior placenta with no previa, no anomalies Despite discrepancy, [facility] recommends: -Continuation of twice weekly testing with BPP -Serial US for growth monthly: - 03/07/23: EFW: 6%, AC: 8%, SDP: 7.1cm, Vertex, UA dopplers: 2.7 normal - 04/04/23 EFW 18%ile, however elevated S/D ratio at >95%ile 2. GDMA2: -Nutrition referral complete -12/15/22: Blood sugars, hector fastings elevated. Referral to [facility] for insulin -12/16/22: Diabetes education and initiation of insulin -12/16/22: Initiated 12 units NPH at at bedtime. -As of 03/28/23, controlled on NPH 22 u HS - Pt increased to NPH 24u HS on 04/01, now all WNL 3. Rh-negative status -RhoGAM: 02/06/2023 4. Probable chronic HTN; stage I HTN noted on several values near beginning of , with proteinuria noted at baseline. -History of gestational hypertension, developed in labor with last . Was discharged on Procardia -Baseline preeclampsia labs: pr/cr ratio: 0.30, AST 37 H, ALT 42 H -24 hr urine for protein: 305 -Repeat AST/ALT: 11/07=AST 43 h, ALT 28 NL 5. Obesity, BMI 36.4 -ASA 81mg -Hemoglobin A1c: 5.7% 6.Anatomy Scan: EFW 13%, Placenta tip 2.0 cm from os. Repeat US at 28 weeks: no previa Narrative: Amy is feeling well today. She is without difficulty. Pain is well controlled. She is ambulating and urinating without difficulty. No heavy bleeding. the patient has done well. See progress note from this AM for full detail . [place] Gender: Female Time Spent with Patient Time attestation: Total time spent providing and/or coordinating discharge services: Discharge Plan Discharge Disposition: Home, Self-Care Date of Admission: 04/06/23 15:59 Attending Provider on Discharge: Maribeth Rubi Primary Care Provider: Provider,Not a Local Condition: Improved Anticipated Discharge Date/Time: 04/08/23 19:13 Discharge Medications: New docusate sodium 100 mg Capsule 100 mg PO DAILY Qty: 0 0RF ibuprofen 600 mg Tablet 600 mg PO Q6H PRNQty: 0 0RF Lanolin (HPA) 100 % Cream 1 applic topical Q1H PRNQty: 0 0RF acetaminophen 500 mg Tablet 1,000 mg PO Q6H PRNQty: 0 0RF Continued DHA 200 mg capsule 200 mg PO DAILY calcium carbonate 600 mg calcium (1,500 mg) tablet 600 mg PO QDAY Fish Oil 100-160-1,000 mg capsule 1 cap PO DAILY magnesium 250 mg tablet 250 mg PO QDAY zinc citrate 11 mg tablet,chewable 11 mg PO DAILY vitamin B complex [B Complex-Vitamin B12] Tablet 1 tab PO QDAY Discontinued Humulin N NPH U-100 Insulin 100 unit/mL suspension 24 unit subcut .hs aspirin [Adult Aspirin Regimen] 81 mg tablet,delayed release (DR/EC) 81 mg PO QDAY No Action (DME) insulin syringe-needle U-100 [Sure Comfort Insulin Syringe] 1 mL 30 gauge x 5/16 syringe See Rx Instructions .Route Qty: 100 3RF Rx Instructions: As directed (DME) lancets Misc See Rx Instructions .MEDSUPPLY Qty: 100 3RF Rx Instructions: Test blood sugar 4 times daily. (DME) Test Strips Misc See Rx Instructions .MEDSUPPLY Qty: 100 3RF Rx Instructions: Test blood sugar 4 times daily. Discharge Orders: Discharge Order (Routine); Ordered 04/08/23 Ordered By: Maribeth Rubi Patient Education: OB Vaginal/Breast Feeding Additional Instructions: [facility] BP check sometime next week. Activity Level: No Restrictions Discharge Diet: Regular Follow Up Appointments: Provider,Not a Local [Primary Care Provider] - [facility]
== END 2023-04-08 21:05 | disposition home or self-care (01) | DRG 805 ==
PROVIDERS: Admitting Provider Obstetrics & Gynecology; Visit Provider Obstetrics & Gynecology
DX: O36.5930 Maternal care for other known or suspected poor fetal growth, third trimester, not applicable or unspecified (principal); O99.42 Diseases of the circulatory system complicating childbirth; Z37.0 Single live birth; O72.1 Other immediate postpartum hemorrhage; O10.92 Unspecified pre-existing hypertension complicating childbirth; I49.3 Ventricular premature depolarization; O24.424 Gestational diabetes mellitus in childbirth, insulin controlled; O99.824 Streptococcus B carrier state complicating childbirth; O26.893 Other specified pregnancy related conditions, third trimester; Z67.21 Type B blood, Rh negative; Z3A.36 36 weeks gestation of pregnancy
CPT/HCPCS: 01967; 36415; 59200; 82565; 82962; 83735; 84443; 84450; 84460; 84520; 85018; 85025; 85027; 85461; 86850; 86870; 86880; 86900; 86901; 88307; 93005; A9270; C1726; J0290; J0665; J2371; J2590; J2791; J2795; J3590; J7042; J7120

== ENCOUNTER 2023-04-21 12:17 | Outpatient (CLI) | payer OTHER, SELFPAY ==
--- NOTE | 2023-04-21 17:00 | P.LACCB_ITS ---
Consult Note - Mom Date of Visit Date of visit: 04/21/23 instructional systems design consultant: Mara Cody Visit Code: Visit Patient's Information Phone number: [phone] : 6 Para: 4 Allergies No Known Drug Allergies Allergy (Verified 04/21/23 11:24) Mother's Medical History: Medical History (Updated 04/21/23 @ 16:12 by Stefanie Jimenes CNM) Intrauterine growth restriction (IUGR) affecting care of mother ?O36.5990 - Maternal care for other known or suspected poor growth, unspecified trimester, not applicable or unspecified (ICD-10) History of gestational hypertension ?Z87.59 - Personal history of other complications of , childbirth and the puerperium (ICD-10) History of gestational diabetes ?Z86.32 - Personal history of gestational diabetes (ICD-10) Delivery Information Delivery type: Vaginal Weeks Gestation: 37.0 Gestational Age: AGA (IUGR) Weight: 2.525 kg Discharge Weight: 2.436 kg Baby's Information Baby's Age at Visit: 14 days Baby's Provider or Clinic: Dr. Black Jaundice: No Reason for Consult Reason for Consult: baby is sleepy at breast, concern for transfer Past Experience Past Experience: Yes (nursed two of her older children about 6 months each) Current Frequency of Day Feedings: about every three hours Frequency of Night Feedings: about every four hours Both Breasts: Yes Suck: fairly strong Latch: narrow Length of Time: 20 - 30 miutes total Pumping Pumping: Yes (about 4 times/day) Quantity Pumped: 1 - 2 oz total each time Supplementing EMB Supplement: No Formula Supplement: Yes (is supplementing with 12 - 15 m Neosure at every feeding) Baby Elimination Number of Wet Diapers a Day: almost every feeding Number of BM a Day: one every other day, yellow and seedy Breast/Nipple Condition Breast Information: WNL Maternal Nipple Condition - Left: Common Nipple Maternal Nipple Condition - Right: Common Nipple Sore Nipples: No Onsite Pre-Feed weight: 2.396 kg Post-Feed weight: 2.408 kg Milk Transferred (mL): 12 Assessments/Interventions Assessments/Interventions: Met with mom and this now 14 day old ex- term AGA/IUGR baby for consult. Mom reports baby has been very sleepy at the breast and d/t her weight loss and bilirubin issues she's been nursing but also supplementing with an SNS at breast using Neosure 22 calorie formula. Also reports she doesn't open her mouth very wide and has a shallow latch. Baby is nursing every 3 - 4 hours for about 30 minutes total while mom supplements with 12 - 15 ml Neosure each time. Mom is able to pump about 4 times/24 hours and gets between 1 - 2 oz total each time. Until baby is back to BW, she'd like to continue the formula. Breasts WNL- symmetrical with rounded lower quadrants, intramammary distance < 1.5 inches. Nipples are everted and don't flatten or retract on compression, no damage noted. Baby has gained 12 grams/day since her last visit on 04/17. She's still 5% below BW at 14 DOL. Mom denies any caput/cephalohematoma at delivery and thinks baby has equal ROM when turning her head and moving her extremities. Her palate is WNL, both her upper and lower frenulum appear to be WNL. She has a fairly strong suck on a finger and her tongue consistently extends over the gum line. The tongue also has good lateral movement. Mom latched baby to the left side, mom does have a little larger than average nipple and that along with baby not opening wide, contribute to a more shallow latch. Baby aggressively suckled for the first few minutes, but then slowed down and was much more passive despite multiple attempts to rouse her and get her actively going again. After about 10 minutes she was weighed and had transferred 6 ml. 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 She started out with a few minutes of aggressive nursing, but then became more passive and at about another 10 minutes had transferred another 6 ml. Mom then gave 30 ml Neosure at the breast with the SNS. Mom was measured and flange size was suggested, pumping handout given. Plan: 1. Mom will continue to nurse baby every 3 - 4 hours, offering both sides each time. Suggested she offer the first side without the SNS and on the second side use the SNS, increasing the supplementation to 2 - 3 oz each time. 2. Continue pumping as often as she can. Mom has three other children but thinks she can pump 3 - 4 times/24 hours. 3. Reviewed some ideas to help boot her supply. 4. Showed mom some exercises that may help baby to open her mouth wider. 5. Will f/u on 05/01/23 for a pre and post feeding weight. Meds Home Medications and Allergies Home Medications Medication Instructions Recorded Confirmed Type calcium carbonate 600 mg calcium 600 mg PO QDAY 09/30/22 04/21/23 History (1,500 mg) tablet docosahexaenoic acid 200 mg 200 mg PO DAILY 09/30/22 04/21/23 History capsule ( DHA) magnesium 250 mg tablet 250 mg PO QDAY 09/30/22 04/06/23 History omega 9-iee-lfd-fish oil 100 1 cap PO DAILY 09/30/22 04/07/23 History mg-160 mg-1,000 mg capsule (Fish Oil) vitamin B complex (B 1 tab PO QDAY 12/15/22 04/06/23 History Complex-Vitamin B12 tablet) zinc citrate 11 mg chewable tablet 11 mg PO DAILY 03/21/23 04/07/23 History Allergies Allergy/AdvReac Type Severity Reaction Status Date / Time No Known Drug Allergies Allergy Verified 04/21/23 11:24
== END 2023-04-21 12:18 | disposition home or self-care (01) ==
LOC: OB LAC 12:18
PROVIDERS: Visit Provider Obstetrics & Gynecology
DX: Z39.1 Encounter for care and examination of lactating mother (principal)
CPT/HCPCS: G0463

== ENCOUNTER 2023-05-25 08:10 | Outpatient (CLI) | payer OTHER, SELFPAY | END 2023-05-25 08:11 | disposition home or self-care (01) | LOC: NFLDREF 06-02 08:57 | PROVIDERS: Visit Provider Advanced Practice Midwife | DX: O24.419 Gestational diabetes mellitus in pregnancy, unspecified control (principal) | CPT/HCPCS: 82947; 82950 ==

== ENCOUNTER 2023-09-29 12:41 | Outpatient (CLI) | payer OTHER, SELFPAY ==
--- NOTE | 2023-09-29 13:00 | CRLHL7_ITS ---
For Patients: As a result of the Cures Act, medical imaging exams and procedure reports are released immediately into your electronic medical record. You may view this report before your referring provider. If you have questions, please contact your health care provider. INDICATION: First trimester scan, establish dates. COMPARISON: None. TECHNIQUE: Real-time blackwell-scale imaging of the pelvis was performed, transabdominal only as patient declined transvaginal imaging. FINDINGS: Sonographic imaging demonstrates a single living intrauterine gestation. The embryo demonstrates a regular cardiac rate measuring 180 beats per minute. The embryo`s crown-rump length measurement of 2.8 cm corresponds to a gestational age of 9 weeks 4 days with a sonographic due date of 04/29/2024. There is a normal-appearing yolk sac. There are no gross abnormalities noted within the embryo at this early state of development. The gestational sac has a normal appearance. There is a 2.6 x 0.9 x 1.1 cm perigestational hemorrhage. The amount of fluid within the sac appears appropriate for gestational age. The cervix is closed. The myometrium appears normal. The ovaries are of normal size. Right ovarian cyst is present measuring 2.2 x 1.7 x 1.8 cm. There are no suspicious fluid collections noted in the cul-de-sac. IMPRESSION: Single living intrauterine with sonographic gestational age 9 weeks 4 days and a sonographic due date of 04/29/2024. Right mid subchorionic hemorrhage measures 2.6 x 0.9 x 1.1 cm. Dictated by Javed Simmons MD @ 09/29/2023 3:30:23 PM (Electronically Signed)
== END 2023-09-29 12:42 | disposition home or self-care (01) ==
LOC: US 12:42
PROVIDERS: Visit Provider Registered Nurse
DX: Z34.91 Encounter for supervision of normal pregnancy, unspecified, first trimester (principal); O20.9 Hemorrhage in early pregnancy, unspecified; Z3A.09 9 weeks gestation of pregnancy
CPT/HCPCS: 76801; 82565; 82570; 84156; 84439; 84443; 84450; 84460; 84520; 84550; 86592; 86703; 86704; 86706; 86762; 86787; 86803; 86850; 86900; 86901; 87086; 87340

== ENCOUNTER 2023-10-27 15:00 | Outpatient (CLI) | payer OTHER, SELFPAY | END 2023-10-27 15:01 | disposition home or self-care (01) | LOC: NFLDREF 10-29 06:06 | PROVIDERS: Visit Provider Obstetrics & Gynecology | DX: E05.90 Thyrotoxicosis, unspecified without thyrotoxic crisis or storm (principal); Z87.59 Personal history of other complications of pregnancy, childbirth and the puerperium | CPT/HCPCS: 84443; 84450 ==

== ENCOUNTER 2023-11-24 16:02 | Outpatient (CLI) | payer OTHER, SELFPAY ==
--- NOTE | 2023-11-24 15:45 | CRLHL7_ITS ---
For Patients: As a result of the Century Cures Act, medical imaging exams and procedure reports are released immediately into your electronic medical record. You may view this report before your referring provider. If you have questions, please contact your health care provider. INDICATION: demise. TECHNIQUE: Ultrasound OB pelvis transabdominal. Real-time blackwell-scale imaging of the fetus was performed as well as color Doppler and spectral Doppler analysis of the umbilical artery. COMPARISON: 09/29/2023. FINDINGS: Single intrauterine gestation. heart activity: Not present. Presentation: Cephalic. Placenta: Posterior. Amniotic fluid: Normal. The following biometric measurements were obtained: Biparietal diameter: 14 weeks 3 days. Head circumference: 15 weeks 3 days. Abdominal circumference: 15 weeks 3 days. Femur length: 15 weeks 3 days. Ultrasound age: 15 weeks 1 day. PEG by US: May 16, 2024. EFW: 123 Grams, <3 %. IMPRESSION.: Nonviable intrauterine . There is no heart activity. No other abnormality. Dictated by Caleb Oliver MD @ 11/24/2023 5:24:23 PM (Electronically Signed)
== END 2023-11-24 16:03 | disposition home or self-care (01) ==
LOC: US 16:03
PROVIDERS: Visit Provider Obstetrics & Gynecology
DX: O02.1 Missed abortion (principal)
CPT/HCPCS: 76816

== ENCOUNTER 2023-11-24 16:46 | Inpatient (IN) | payer OTHER, SELFPAY ==
[2023-11-24] VITALS (10 sets, daily range): BP systolic 113–155; BP diastolic 58–87; PULSE 45–89; RESP 18; TEMP 37.3–37.7; BMI 34.8
--- NOTE | 2023-11-24 17:02 | P.OBHP_ITS ---
OB - H&P: HPI Labor/Induction History of Present Illness Date Seen: 11/24/23 Chief Complaint: The patient is a 33 year old 7 para 4024 with an intrauterine demise that is being admitted for medical management/induction. Chief complaint: demise : 7 Para: 4 Date of last menstrual period: 07/23/23 Estimated date of delivery: 04/28/24 Gestational age based on last menstrual period: 17 Indications for induction: intrauterine Narrative: She was seen in the [facility] today at 17 5/7 weeks gestation for routine visit. Unfortunately, an intrauterine demise was diagnosed. Formal ultrasound in Radiology demonstrated that nonviable fetus was measuring 15 3/7 weeks in size. No obvious etiology of the demise was apparent by ultrasound. The patient was counseled as to management options and has elected medical management with misoprostol. Specific Issues/Plans G 7 P 4024 # Non-immune to hepatitis B. Requests vaccination . 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 * TSH: Low at 0.239. Normal Free T4 at 1.11. see below. * EKG is shows sinus rhythm with frequent premature ventricular complexes and possible premature atrial complexes with aberrant conduction nonspecific ST and T-wave abnormality. * Zio findings: Predominant underlying rhythm was sinus rhythm. No isolated SVEs, SVE couplets, or SVE triplets were present. Isolated VEs were frequent, VE couplets were rare, and no VE triplets were present. Ventricular bigeminy and trigeminy were present. * Cardiology referral, Dr. Leonardo Arambula: Start metoprolol XL 25 mg daily for PVC suppression. TTE (RODNEY??) ARANZA for cardiac structural abnormality. Follow- up with Dr. Mueller in electrophysiology 11/23/2023: Metoprolol discontinued and patient switched to sotalol. Follow-up with systematic theology professor/Dr Vegas in 3 months. # Possible subclinical hyperthyroidism vs normal suppression of TSH 1st treimster. * TSH at 1st OB: Low at 0.239. Normal Free T4 at 1.11. * Endocrinology recommends repeat thyroid studies Q 8 weeks. * 10/26: TSH = 0.922 (normal) # Closely spaced pregnancies. Vaginal delivery 04/07/23. * US for EFW at 28-32 weeks # H/o growth restriction with 4th baby # H/o GDMA2 w/ all 4 pregnancies Hgb A1C 5.3% Early 1 hour screen 16-20 weeks # H/o gestational HTN; BP 132/70 at first OB visit Baseline pre E labs: BUN and Creat normal. P/C 0.19. ALT normal. AST elevated at 47. Recheck at next visit. [] Recommend daily low dose aspirin at 12 weeks #Obesity. BMI 34.2 Hgb A1C 5.3% Recommend daily low dose aspirin at 12 weeks # Rh negative Rhogam Rh positive #Declined chlam/gc at 1st OB. Covid: Not vaccinated. Recommended. Declines. History of Present Dating criteria: based on LMP care: good care complications: other complications comment: Followed by cardiology for frequent PVCs, managed on beta-harpreet. Labs Blood type: B (-) negative Rubella: immune RPR/VDLR: nonreactive GBS status: unknown HBsAG: negative Review of Systems Status of ROS: Reports: 10 or more systems reviewed and unremarkable except as noted in History and below Narrative: Had a little bit of spotting this week. Meds Home Medications and Allergies Home Medications ?Medication ?Instructions ?Recorded ?Confirmed ?Type calcium carbonate 600 mg PO QDAY 09/30/22 11/24/23 History docosahexaenoic acid 200 mg 200 mg PO DAILY 09/30/22 11/24/23 History capsule ( DHA) magnesium 250 mg tablet 250 mg PO QDAY 09/30/22 11/24/23 History omega 1-fgn-xue-fish oil 100 1 cap PO DAILY 09/30/22 11/24/23 History mg-160 mg-1,000 mg capsule (Fish Oil) vitamin B complex (B 1 tab PO QDAY 12/15/22 11/24/23 History Complex-Vitamin B12 tablet) zinc acetate 50 mg (zinc) capsule 50 mg PO QDAY 10/12/23 11/24/23 History vitamin A palmitate 3,000 mcg 3,000 mcg PO QWEEK 10/27/23 11/24/23 History (10,000 unit) capsule sotalol 80 mg tablet 80 mg PO Q12H 11/24/23 11/24/23 History Allergies Allergy/AdvReac Type Severity Reaction Status Date / Time No Known Drug Allergies Allergy Verified 11/24/23 17:09 OB - H&P: Exam Constitutional: Constitutional: no acute distress Routine HEENT Exam: Head: Present atraumatic Eye: Present normal appearance ENT: Present mucous membranes moist Routine Respiratory Exam: Respiratory: Present CTA bilaterally Routine Cardiovascular Exam: Cardiovascular: RRR Routine Abdominal Exam: Abdominal: Present soft; Absent tenderness Fetus (Single): Heart Rate Baseline: 0 Routine Extremities Exam: Extremities: Present normal inspection; Absent pedal edema or tenderness Routine Back/Spine/Pelvis Exam: Back/Spine: full ROM Routine Skin Exam: Present intact Routine Neurological Exam: Present alert and oriented X3 Routine Psychiatric Exam: Present normal affect Detailed Psychiatric Exam: Mood and affect: Present tearful OB - Problem Based A/P Additional Plan (1) demise before 20 weeks with retention of fetus: Status: Acute Delivery/Labor/Induction Plan Plan: induction Induction method: per misoprostol protocol (400 mcg vaginally every 3 hours until delivered.)
[2023-11-24 17:32] LABS: Basophils Absolute Auto 0.02 K/uL (0.00-0.30); Basophils Percent Auto 0.3 % (0.0-3.0); Eosinophils Absolute Auto 0.31 K/uL (0.00-0.50); Hematocrit 42.8 % (33.0-51.0); Hemoglobin* 14.2 gm/dL (12.0-16.0); Immature Granulocytes Abs Auto 0.02 K/uL (0.00-0.30); Immature Granulocytes Pct Auto 0.3 %; Lymphocytes Absolute Auto 2.29 K/uL (0.90-2.90); Lymphocytes Percent Auto 29.8 % (20-44); Mean Corpuscular HGB Conc 33 gm/dL (32-36); Mean Corpuscular Hemoglobin 29 pg (26-34); Mean Corpuscular Volume 88 fL (80-100); Monocytes Percent Auto 5.6 % (0.0-11.0); Neutrophils Absolute Auto 4.62 K/uL (1.7-7.0); Platelet Count* 225 K/uL (140-440); RDW Coefficient of Variation % 13.8 % (11.5-15.5); Red Blood Count 4.84 m/uL (4.00-5.20); White Blood Count* 7.69 K/uL (4.50-11.00)
[2023-11-24 17:36] LABS: Slide Review Reflex No
[2023-11-24 18:20] LABS: Fibrinogen* 387 mg/dL (200-450)
[2023-11-24 18:21] LABS: INR 0.94 (0.91-1.10); Partial Thromboplastin Time* 25 Seconds (23-33); Prothrombin Time 13.1 Seconds
[2023-11-24] MEDS: miSOPROStoL 200 MCG TABLET 400 MCG VAGINAL ×2 (18:49→22:03)
[2023-11-24 19:19] LABS: Amphetamine Screen Urine Negative (Negative); Barbiturate Screen Urine Negative (Negative); Benzodiazepines Screen Urine Negative (Negative); Cannabinoid Screen Urine Negative (Negative); Cocaine Screen Urine Negative (Negative); Methadone Screen Urine Negative (Negative); Methamphetamines Screen Urine Negative (Negative); Opiate Screen Urine Negative (Negative); Oxycodone Screen Urine Negative (Negative); Phencyclidine Screen Urine Negative (Negative); Tricyclic Antidepressant Urine Negative (Negative)
[2023-11-24 19:32] LABS: Glucose* 96 mg/dL (60-115)
[2023-11-24 19:50] LABS: Free T4 Free Thyroxine* 0.75 ng/dL (0.70-1.85)
[2023-11-24] MEDS: ACETAMINOPHEN 500 MG TABLET 1000 MG PO (20:16)
[2023-11-25] VITALS (60 sets, daily range): BP systolic 95–116; BP diastolic 51–73; PULSE 38–101; RESP 14–18; TEMP 36.8–37.7; O2SAT 92–99
[2023-11-25] MEDS: miSOPROStoL 200 MCG TABLET 400 MCG VAGINAL ×2 (01:00→04:02)
[2023-11-25] MEDS: miSOPROStoL 800 MCG/4 TABLET PR ×2 (07:41→10:20)
--- NOTE | 2023-11-25 08:20 | W.PM.OBVAGDE ---
OB Procedure Vag Delivery Mother Details Mother Details: The patient is a 33 year-old, 7, Para 4, admitted on 11/24/23 at 17 5/7 weeks gestation for medical management of 2nd trimester intrauterine demise. : 7 Para: 4 Weeks Gestation: 17.6 Admission Date: 11/24/23 Additional Details Amniotic Membrane Rupture Date: 11/25/23 Amniotic Membrane Rupture Time: 07:33 Amniotic Membrane Fluid Description: Bloody Analgesia/Anesthesia Type: None Induction Method: per misoprostol protocol (400 mcg PV q3 hours. Received a total of 5 doses, though tablets delivered with fetus soon after 5th administration.) Pushin:33 Delivery Details Delivery Date: 11/25/23 Delivery Time: 07:33 Route of delivery: Infant Gender: Ambiguous Infant Viability: Miscarriage (IUP<20 wks) Delivery Details: Delivered over intact perineum via spontaneous vaginal delivery. Membranes spontaneously ruptured with the delivery. Cord was clamped and cut and fetus handed to mother at her request. Additional Details Shoulder Dystocia: No Blood Loss: 550 Laceration: None Blood Loss Measurement Type: QBL Event Summary Status: Placenta was retained despite Misoprostol 800 mcg administration NE following the delivery. Patient taken to the O.R. for manual removal of placenta/uterine curettage. See op note for further details.
[2023-11-25] MEDS: LACTATED RINGERS 1000 ML 1,000 ML 100 ML IV (09:45)
[2023-11-25] MEDS: CEFAZOLIN 2 GM INJ IVP (09:55)
[2023-11-25] MEDS: BUPIVACAINE 0.25% 30 ML INJECTION (10:06)
--- NOTE | 2023-11-25 10:35 | W.PM.GYNPROC ---
Procedure Note Date of procedure: 11/25/23 Will [facility] bill your pro fee for this procedure?: Yes Pre-op diagnosis: 1. Status post delivery nonviable fetus 17 5/7 weeks gestation. 2. Retained placenta, with post delivery QBL of 550 mL. Post-op diagnosis: Same. Procedure: Manual removal of placenta and uterine curettage. Anesthesia: MAC and local (Paracervical block) Complications: None Surgeon: Claudia Rios MD Estimated blood loss (mL): 50 Pathology: specimen obtained, sent to pathology (Placenta) Condition: stable Disposition: floor Findings: Disrupted placenta. Procedure Description: After obtaining informed consent, the patient was taken to the operating room with IV running. She received monitored anesthesia care. She was prepared and draped in the normal, sterile fashion in the dorsal lithotomy position. 2 g of IV Ancef were administered intravenously. An open-sided bivalve speculum was introduced into the vagina and the cervix visualized. There was a large amount of blood and clot in the vaginal vault, which was removed with a ring forceps and a sponge stick. The tiny umbilical cord was avulsed with transfer of the patient from the transport bed to the operating table, but a 1-2 inch segment was still observed to be extruding from the cervical os. I could visualize the edge of the placenta at the external cervical os. A paracervical block was administered using a total of 20 mL of a 50-50 mixture of 0.25% Marcaine and 1% lidocaine plain. An additional 1 mL of the anesthetic mixture was injected into the anterior lip of the cervix. The anterior lip of the cervix was then grasped with an Allis clamp for traction. A ring forceps was used to gently grasp the edge of the placenta within the endocervical canal and the placenta was gently teased free with some trailing membranes. The uterus was then gently sharply curetted and additional placental fragments and membranes were removed where they were attached to the posterior aspect of the uterine cavity. 20 units of Pitocin were administered with the IV fluids, an additional 800 mcg misoprostol was administered MA. Bimanual massage was performed and the uterine flow decreased substantially. The patient tolerated the procedure well. Sponge, lap, and needle counts were reported as correct x2. The patient was taken to the recovery room awake and in stable condition. Cultures were obtained of the maternal and aspects of the placenta. Placenta will be sent for pathology and cytogenetic studies. Postoperative debriefing was done which confirmed the procedure, total estimated blood loss for the procedure, and pathology specimen.
--- NOTE | 2023-11-25 10:41 | P.ANES_ITS ---
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
[2023-11-25 11:14] LABS: Basophils Absolute Auto 0.03 K/uL (0.00-0.30); Basophils Percent Auto 0.3 % (0.0-3.0); Eosinophils Absolute Auto 0.32 K/uL (0.00-0.50); Eosinophils Percent Auto 3.2 % (0.0-7.0); Hematocrit 40.3 % (33.0-51.0); Hemoglobin* 13.3 gm/dL (12.0-16.0); Immature Granulocytes Abs Auto 0.02 K/uL (0.00-0.30); Immature Granulocytes Pct Auto 0.2 %; Lymphocytes Percent Auto 17.8 % (20-44); Mean Corpuscular HGB Conc 33 gm/dL (32-36); Mean Corpuscular Hemoglobin 29 pg (26-34); Mean Corpuscular Volume 89 fL (80-100); Neutrophils Percent Auto 74.5 % (42.0-72.0); Platelet Count* 203 K/uL (140-440); RDW Coefficient of Variation % 13.8 % (11.5-15.5); Red Blood Count 4.53 m/uL (4.00-5.20)
[2023-11-25 11:26] LABS: Slide Review Reflex No
[2023-11-25] MEDS: ACETAMINOPHEN 500 MG TABLET 1000 MG PO (15:11)
[2023-11-25] MEDS: DOCUSATE SODIUM 100 MG CAPSULE PO (15:25)
--- NOTE | 2023-11-25 18:25 | P.DS_ITS ---
DS: Providers Provider Date Seen: 11/25/23 Date of admission: 11/24/23 16:46 Primary care physician: Not a Local Provider Admitting Clinician: Claudia Rios MD Consults: 11/24/23 17:17 Consult to Rotary Driller [CONS] Routine Comment: Reason for Consult:: Spiritual Needs Attending Physician on discharge: Claudia Rios MD Date of Discharge: 11/25/23 DS: Diagnosis Discharge Diagnosis (1) demise before 20 weeks with retention of fetus: Status: Acute Exam Const: Vital Signs, click to edit/add: Vital Signs - 24 hr 11/24/23 18:54 11/24/23 19:13 11/24/23 19:15 Temperature 99.1 F Pulse Rate 46 L 88 Pulse Rate [Left P ulse Oximeter] Respiratory Rate Blood Pressure 155/75 H 137/87 Blood Pressure [Le ft Arm] Pulse Oximetry Oxygen Delivery [facility] 11/24/23 20:16 11/24/23 20:18 11/24/23 22:00 Temperature 99.1 F 99.1 F Pulse Rate 83 Pulse Rate [Left P ulse Oximeter] Respiratory Rate 18 Blood Pressure 113/58 L Blood Pressure [Le ft Arm] Pulse Oximetry Oxygen Delivery [facility] 11/24/23 22:08 11/25/23 01:00 11/25/23 01:04 Temperature 99.8 F H 98.6 F Pulse Rate 82 Pulse Rate [Left P ulse Oximeter] Respiratory Rate Blood Pressure 105/63 Blood Pressure [Le ft Arm] Pulse Oximetry Oxygen Delivery [facility] 11/25/23 03:09 11/25/23 04:03 11/25/23 04:12 Temperature 98.7 F 98.9 F Pulse Rate Pulse Rate [Left P ulse Oximeter] Respiratory Rate 18 Blood Pressure 115/60 Blood Pressure [Le ft Arm] Pulse Oximetry Oxygen Delivery [facility] 11/25/23 07:03 11/25/23 08:55 11/25/23 08:56 Temperature 98.9 F 99.8 F H Pulse Rate 47 L Pulse Rate [Left P ulse Oximeter] Respiratory Rate Blood Pressure 116/56 L Blood Pressure [Le ft Arm] Pulse Oximetry Oxygen Delivery [facility] 11/25/23 09:39 11/25/23 09:41 11/25/23 10:34 Temperature 98.8 F Pulse Rate 52 L 82 Pulse Rate [Left P ulse Oximeter] Respiratory Rate 14 Blood Pressure 108/72 102/57 L Blood Pressure [Le ft Arm] Pulse Oximetry 98 99 Oxygen Delivery Me od Room [facility] 11/25/23 10:35 11/25/23 10:39 11/25/23 10:39 Temperature Pulse Rate 82 81 81 Pulse Rate [Left P ulse Oximeter] Respiratory Rate 14 Blood Pressure 102/57 L 104/60 104/60 Blood Pressure [Le ft Arm] Pulse Oximetry 99 99 Oxygen Delivery Me od Room Air 11/25/23 10:40 11/25/23 10:44 11/25/23 10:44 Temperature Pulse Rate 78 78 Pulse Rate [Left P ulse Oximeter] Respiratory Rate 14 Blood Pressure 108/55 L 108/55 L Blood Pressure [Le ft Arm] Pulse Oximetry 99 98 Oxygen Delivery Me od Room Air 11/25/23 10:45 11/25/23 10:49 11/25/23 10:49 Temperature Pulse Rate 38 L 82 Pulse Rate [Left P ulse Oximeter] Respiratory Rate 14 Blood Pressure 105/53 L 105/53 L Blood Pressure [Le ft Arm] Pulse Oximetry 98 [facility] 11[facility]25/23 10:50 11/25/23 10:54 11/25/23 10:54 Temperature Pulse Rate 39 L 78 Pulse Rate [Left P ulse Oximeter] Respiratory Rate 14 Blood Pressure 105/55 L 105/55 L Blood Pressure [Le ft Arm] Pulse Oximetry 97 99 Oxygen Delivery Me od Room Air 11/25/23 10:55 11/25/23 10:59 11/25/23 10:59 Temperature Pulse Rate 38 L 82 Pulse Rate [Left P ulse Oximeter] Respiratory Rate 14 Blood Pressure 99/56 L 99/56 L Blood Pressure [Le ft Arm] Pulse Oximetry 99 98 Oxygen Delivery Me od Room Air 11/25/23 11:00 11/25/23 11:03 11/25/23 11:07 Temperature Pulse Rate Pulse Rate [Left P ulse Oximeter] Respiratory Rate Blood Pressure 108/52 L Blood Pressure [Le ft Arm] Pulse Oximetry 98 94 98 Oxygen Delivery Me od 11/25/23 11:07 11/25/23 11:09 11/25/23 11:12 Temperature 99.3 F Pulse Rate 43 L 41 L Pulse Rate [Left P ulse Oximeter] Respiratory Rate 14 Blood Pressure 108/52 L 105/59 L Blood Pressure [Le ft Arm] Pulse Oximetry 98 98 Oxygen Delivery Me od Room Air 11/25/23 11:17 11/25/23 11:22 11/25/23 11:26 Temperature Pulse Rate 81 Pulse Rate [Left P ulse Oximeter] Respiratory Rate Blood Pressure 95/57 L Blood Pressure [Le ft Arm] Pulse Oximetry 97 97 Oxygen Delivery Me od 11/25/23 11:27 11/25/23 11:32 11/25/23 11:34 Temperature Pulse Rate Pulse Rate [Left P ulse Oximeter] Respiratory Rate Blood Pressure Blood Pressure [Le ft Arm] Pulse Oximetry 96 97 94 Oxygen Delivery Me od 11/25/23 11:37 11/25/23 11:41 11/25/23 11:42 Temperature Pulse Rate 81 Pulse Rate [Left P ulse Oximeter] Respiratory Rate Blood Pressure 99/68 Blood Pressure [Le ft Arm] Pulse Oximetry 97 94 94 Oxygen Delivery Me od 11/25/23 11:47 11/25/23 11:49 11/25/23 11:52 Temperature Pulse Rate Pulse Rate [Left P ulse Oximeter] Respiratory Rate Blood Pressure Blood Pressure [Le ft Arm] Pulse Oximetry 96 94 97 Oxygen Delivery Me od 11/25/23 11:54 11/25/23 11:56 11/25/23 11:57 Temperature Pulse Rate 40 L Pulse Rate [Left P ulse Oximeter] Respiratory Rate Blood Pressure 96/53 L Blood Pressure [Le ft Arm] Pulse Oximetry 92 96 Oxygen Delivery Me od 11/25/23 12:02 11/25/23 12:07 11/25/23 12:08 Temperature Pulse Rate Pulse Rate [Left P ulse Oximeter] Respiratory Rate Blood Pressure Blood Pressure [Le ft Arm] Pulse Oximetry 95 95 94 Oxygen Delivery Me od 11/25/23 12:11 11/25/23 12:12 11/25/23 12:17 Temperature Pulse Rate 86 Pulse Rate [Left P ulse Oximeter] Respiratory Rate Blood Pressure 96/51 L Blood Pressure [Le ft Arm] Pulse Oximetry 95 96 Oxygen Delivery Co thod 11/25/23 12:22 11/25/23 12:26 11/25/23 12:27 Temperature Pulse Rate 45 L Pulse Rate [Left P ulse Oximeter] Respiratory Rate Blood Pressure 106/53 L Blood Pressure [Le ft Arm] Pulse Oximetry 96 98 Oxygen Delivery Me thod 11/25/23 12:32 11/25/23 12:37 11/25/23 12:41 Temperature Pulse Rate 47 L Pulse Rate [Left P ulse Oximeter] Respiratory Rate Blood Pressure 106/56 L Blood Pressure [Le ft Arm] Pulse Oximetry 97 97 Oxygen Delivery Me thod 11/25/23 12:42 11/25/23 12:47 11/25/23 12:52 Temperature Pulse Rate Pulse Rate [Left P ulse Oximeter] Respiratory Rate Blood Pressure Blood Pressure [Le ft Arm] Pulse Oximetry 97 97 97 Oxygen Delivery Me thod 11/25/23 12:56 11/25/23 12:57 11/25/23 13:31 Temperature Pulse Rate 48 L 50 L Pulse Rate [Left P ulse Oximeter] Respiratory Rate Blood Pressure 112/56 L 116/59 L Blood Pressure [Le ft Arm] Pulse Oximetry 96 Oxygen Delivery Me thod 11/25/23 16:53 11/25/23 16:53 11/25/23 16:53 Temperature 98.3 F 98.3 F Pulse Rate 100 Pulse Rate [Left P ulse Oximeter] 100 Respiratory Rate 16 Blood Pressure 111/73 Blood Pressure [Le ft Arm] 111/73 Pulse Oximetry 98 Oxygen Delivery Me thod Room Air Documenting provider has reviewed patient's vital signs: yes Common normals: no apparent distress, oriented x3 and alert General appearance: cooperative Resp: Common normals: normal respiratory effort Cardio: Common normals: regular rate Rate: regular rate Other: occasional PVCs GI: Common normals: soft to palpation and non-tender Palpation: soft : Uterus: U/4 and firm Lochia: scant Neuro: Common normals: oriented x3 Sensorium/orientation: alert OB - DS: Summary Hospital Course Hospital Course: The patient is a 33 year old at 17 5/7 weeks gestation that was admitte d to the Center on 11/24/23 for medical management if 2nd trimester intrauterine demise. Labor was induced with intravaginal misoprostol. She proceeded to a spontaneous vaginal delivery of a nonviable fetus. Placenta was retained, and the patient was taken to the operating room for manual removal of the placenta/uterine curettage. Total QBL for the delivery and surgery was 600 mL. Peripartum Data delivery method: Vaginal Laceration description: None Procedures: Procedures Operation Date: 11/25/23 10:10 Actual Procedure Side Surgeon p MANUAL REMOVAL OF PLACENTA AND UTERINE CURETTAGE Claudia Rios MD Procedures: D&C complications: retained placenta Sloan Gender: Ambiguous Time Spent with Patient Time attestation: Total time spent providing and/or coordinating discharge services: Discharge Plan Discharge Disposition: Home, Self-Care Date of Admission: 11/24/23 16:46 Attending Provider on Discharge: Claudia Rios Primary Care Provider: Provider,Not a Local Condition: Stable Anticipated Discharge Date/Time: 11/25/23 16:00 Discharge Medications: Continued DHA 200 mg capsule 200 mg PO DAILY calcium carbonate 600 mg calcium (1,500 mg) tablet 600 mg PO QDAY Fish Oil 100-160-1,000 mg capsule 1 cap PO DAILY magnesium 250 mg tablet 250 mg PO QDAY zinc acetate 50 mg (zinc) capsule 50 mg PO QDAY sotalol 80 mg tablet 80 mg PO Q12H vitamin B complex [B Complex-Vitamin B12] Tablet 1 tab PO QDAY vitamin A palmitate 3,000 mcg (10,000 unit) capsule 3,000 mcg PO QWEEK Discharge Orders: Discharge Order (Routine); Ordered 11/25/23 Ordered By: Claudia Rios Patient Education: OB Loss Additional Instructions: May use [id number] acetaminophen 1000 mg every 6 hours alternating with ibuprofen 600 mg every 6 hours as needed for pain. [facility] 2 [facility]. Activity Level: Activity as Tolerated Activity Detail: Nothing in the vagina for 2 weeks. Discharge Diet: Regular Follow Up Appointments: Provider,Not a Local [Primary Care Provider] - Forms: ScheduleSoft Info Instructions
[2023-11-27 00:21] LABS: Rapid Plasma Reagin (RPR) Non Reactive (Non Reactive)
[2023-11-27 01:00] LABS: CMV Antibody IgG <0.20 U/mL (<=0.70); CMV Antibody IgM 26.1 AU/mL (<=29.9); Toxoplasma gondii Ab, IgG <3.0 IU/mL (<=8.8)
[2023-11-27 01:14] LABS: B2Glycoprotein 1, IgG Antibody <10 SGU (<=20); B2Glycoprotein 1, IgM Antibody <10 SMU (<=20)
[2023-11-27 06:44] LABS: Cardiolipin Antibody IgA <10 APL (<=11); Cardiolipin Antibody IgG <10 GPL (<=14); Cardiolipin Antibody IgM <10 MPL (<=12)
[2023-11-28 09:19] LABS: Parvovirus B19 Antibody IgG 0.65 IV (<=0.90); Parvovirus B19 Antibody IgM 0.33 IV (<=0.89)
[2023-12-02 09:32] LABS: FACV Specimen Whole Blood; Factor V Leiden (F5) Mutation Negative
== END 2023-11-25 17:27 | disposition home or self-care (01) | DRG 770 ==
PROVIDERS: Obstetrics & Gynecology; Admitting Provider Obstetrics & Gynecology; Visit Provider Obstetrics & Gynecology
PROC: 10D17Z9 Manual Extraction of Products of Conception, Retained, Via Natural or Artificial Opening (ICD-10-PCS; principal; 2023-11-25 10:00)
DX: O02.1 Missed abortion (principal); O73.0 Retained placenta without hemorrhage; O99.214 Obesity complicating childbirth; O26.892 Other specified pregnancy related conditions, second trimester; Z67.21 Type B blood, Rh negative; I49.3 Ventricular premature depolarization; Z86.32 Personal history of gestational diabetes; Z3A.17 17 weeks gestation of pregnancy; O99.282 Endocrine, nutritional and metabolic diseases complicating pregnancy, second trimester; E05.90 Thyrotoxicosis, unspecified without thyrotoxic crisis or storm
CPT/HCPCS: 00940; 36415; 80306; 81241; 82947; 84439; 84443; 85025; 85384; 85460; 85461; 85610; 85730; 86146; 86147; 86317; 86592; 86644; 86645; 86747; 86778; 86850; 86900; 86901; 87070; 87075; 87186; 87205; 88233; 88262; 88280; 88285; 88300; 88305; 99140; A9270; J0665; J0690; J1100; J1885; J2250; J2405; J2590; J2704; J2791; J3490; J7120

== ENCOUNTER 2025-01-28 17:20 | Outpatient (CLI) | payer BC, SELFPAY ==
--- NOTE | 2025-01-28 17:30 | CRLHL7_ITS ---
For Patients: As a result of the Century Cures Act, medical imaging exams and procedure reports are released immediately into your electronic medical record. You may view this report before your referring provider. If you have questions, please contact your health care provider. INDICATION: Check viability and dates TECHNIQUE: Transabdominal scanning was performed. COMPARISON: None FINDINGS: There is a living IUP with gestational age of 9 weeks 6 days by LMP and 10 weeks 1 day by today`s crown-rump length. EDC based on LMP is 08/27/2025. The embryonic heart rate is measured at 178 beats per minute. The placenta is not yet formed. A 3.7 x 1.6 x 1.3 cm fundal subchorionic hemorrhage is noted. The ovaries are normal is size and shape. The right ovary measures 4.5 x 3.2 x 2.1 cm and the left 3.1 x 2.6 x 1.4 cm. No adnexal mass or free fluid is apparent. IMPRESSION: 1. Living IUP with gestational age of 9 weeks 6 days by LMP and EDC of 08/27/2025. 2. 3.7 x 1.6 x 1.3 cm fundal subchorionic hemorrhage. Dictated by Robbie Gifford MD @ 01/29/2025 6:03:46 AM (Electronically Signed)
== END 2025-01-28 17:21 | disposition home or self-care (01) ==
LOC: US 17:22
PROVIDERS: Visit Provider Registered Nurse
DX: O20.9 Hemorrhage in early pregnancy, unspecified (principal); Z3A.09 9 weeks gestation of pregnancy
CPT/HCPCS: 76801

== ENCOUNTER 2025-01-28 17:49 | Outpatient (CLI) | payer BC, SELFPAY | END 2025-01-28 17:50 | disposition home or self-care (01) | PROVIDERS: Visit Provider Registered Nurse | DX: Z34.91 Encounter for supervision of normal pregnancy, unspecified, first trimester (principal); Z3A.09 9 weeks gestation of pregnancy | CPT/HCPCS: 82565; 82570; 83020; 83021; 84156; 84443; 84450; 84460; 84520; 85660; 86592; 86703; 86704; 86762; 86787; 86803; 86850; 87086; 87340 ==

== ENCOUNTER 2025-02-04 07:36 | Outpatient (CLI) | payer BC, SELFPAY | END 2025-02-04 07:37 | disposition home or self-care (01) | LOC: NFLDREF 02-07 14:30 | PROVIDERS: Visit Provider Registered Nurse | DX: Z87.59 Personal history of other complications of pregnancy, childbirth and the puerperium (principal) | CPT/HCPCS: 82570; 84156 ==